=== PATIENT | female | born 1965 ===

== ENCOUNTER 2019-04-21 13:30 | Emergency (ER) | payer MEDICAID ==
[2019-04-21 13:39] VITALS: BP 138/87; PULSE 78; RESP 20; TEMP 98.5; O2SAT 98
--- NOTE | 2019-04-21 14:49 | C.PDOC ---
History Of Present Illness 53 year old female presents to the emergency department with complaints of 3 day history of itchy, red, hotness sensation to her palms bilaterally. Patient denies using any new soaps or detergent. She states that she received "a surgery" on her stomach 2 weeks ago here at , and reports taking Tylenol for that time period. Patient thinks that one of the medications she has been taking during the surgery may have caused this reaction. She denies any rash or itching anywhere else, and denies any known allergies to medications. Time Seen by Provider: 04/21/19 14:17 Chief Complaint (Nursing): Abnormal Skin Integrity History Per: Patient History/Exam Limitations: language barrier (Die Holder from [place] #[id number]) Onset/Duration Of Symptoms: Days (3) Current Symptoms Are (Timing): Still Present Location Of Injury: Right: Hand, Left: Hand, Anterior: Hand Quality Of Symptoms: Itching, Other (red, hot) Past Medical History Reviewed: Historical Data, Nursing Documentation, Vital Signs Vital Signs: Last Vital Signs Temp 98.5 F 04/21/19 13:32 Pulse 78 04/21/19 13:32 Resp 20 04/21/19 13:32 BP 138/87 04/21/19 13:32 Pulse Ox 98 04/21/19 13:32 Primary Care Provider: Angela Sidhu - Medical History PMH: Asthma, HTN, Hypercholesterolemia, Rheumatoid Arthritis Family History: States: No Known Family Hx - Social History Hx Tobacco Use: No Hx Alcohol Use: No Hx Substance Use: No - Immunization History Hx Tetanus Toxoid Vaccination: No Hx Influenza Vaccination: No Hx Pneumococcal Vaccination: No Review Of Systems Except As Marked, All Systems Reviewed And Found Negative. Constitutional: Negative for: Fever, Chills Cardiovascular: Negative for: Chest Pain, Palpitations Respiratory: Negative for: Cough, Shortness of Breath Gastrointestinal: Negative for: Nausea, Vomiting, Diarrhea Skin: Positive for: Rash, Other (warmth, redness) Physical Exam - Physical Exam Appears: Non-toxic, No Acute Distress Skin: Warm, Dry, No Rash, Other (erythema to the palmar aspect of the hands bilaterally. NO excoriation. Skin intact. ) Head: Atraumatic, Normacephalic Eye(s): bilateral: Normal Inspection Nose: Normal Oral Mucosa: Moist Tongue: Normal Appearing, No Swelling Lips: Normal Appearing, No Swelling Throat: Normal, No Erythema Neck: Normal, Supple Chest: Symmetrical Cardiovascular: Rhythm Regular, No Murmur Respiratory: Normal Breath Sounds, No Rales, No Rhonchi, No Wheezing Extremity: Normal ROM (Full ROM to the hands bilaterally), No Tenderness, Capillary Refill <2 Sec, No Deformity, No Swelling (to the hands) ED Course And Treatment O2 Sat by Pulse Oximetry: 98 (RA) Pulse Ox Interpretation: Normal Medical Decision Making Medical Decision Making: Plan: Benadryl 50mg PO Patient instructed that she would be receiving Benadryl and cannot drive home. She agreed and reported that someone would come to pick her up. Patient is clear for discharge. Disposition Counseled Patient/Family Regarding: Diagnosis, Need For Followup, Rx Given - Disposition Referrals: Angela Sidhu MD [Medical Doctor] - Disposition: HOME/ ROUTINE Disposition Time: 14:49 Condition: STABLE Prescriptions: Diphenhydramine HCl [Benadryl Allergy] 25 mg PO Q6H #30 tablet Instructions: Skin Rash (DC) Forms: Gen Discharge Inst [place], [facility] ([place]) Print Language: TAJIK - POA Present On Arrival: None - Clinical Impression Clinical Impression: Skin irritation - Scribe Statement The provider has reviewed the documentation as recorded by the Scribe (Fabien Bates) Provider Attestation: All medical record entries made by the Scribe were at my direction and personally dictated by me. I have reviewed the chart and agree that the record accurately reflects my personal performance of the history, physical exam, medical decision making, and the department course for this patient. I have also personally directed, reviewed, and agree with the discharge instructions and disposition.
== END 2019-04-21 14:59 | disposition home or self-care (01) ==
LOC: C.ER 13:30
DX: L98.8 Other specified disorders of the skin and subcutaneous tissue (principal)